=== PATIENT | female | born 2000 | race Hispanic/Latino ===

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

== ENCOUNTER 2024-09-11 12:59 | Emergency (ER) | payer SELFPAY ==
[2024-09-11] MEDS ORDERED: Lidocaine 1% w/Epinephrine 1:100K 20 ML VIAL ONE (14:47)
== END 2024-09-11 16:00 | disposition home or self-care (01) ==
LOC: ERS 12:59
DX: L05.01 Pilonidal cyst with abscess (principal)
CPT/HCPCS: 10080